=== PATIENT | female | born 1950 | race Caucasian/White ===

== ENCOUNTER 2016-07-18 13:10 | Outpatient (CLI) | payer BC ==
[~2016-07-18 13:10] MED LIST: CARDURA2 MG PO; CLEOCIN PREMIX900 MG IV; OXYCODONE HCL E20 MG PO; PRINIVIL20 MG PO
[2016-07-18] MEDS ORDERED: VIVELLE-DO1 PATCH.B1 TD (13:51)
[2016-07-18] MEDS ORDERED: RIFADIN300 MG PO (13:51)
[2016-07-18 13:58] VITALS: BP 149/79; Ht 165.1 cm
--- NOTE | 2016-07-18 14:35 | NUR ---
1410 PROCEDURE COMPLETED BY MARIANNE LEVY,RN, PT TOLERATED WELL. DENIES ANY C/O. AT BEDSIDE.
--- NOTE | 2016-07-18 15:30 | NUR ---
RIGHT UPPER ARM PICC LINE INFUSING ERTAPENEM WITHOUT DIFFICULTY. PATIENT SITTING UP IN BED, TALKING TO SPOUSE, DENIES COMPLAINTS
--- NOTE | 2016-07-18 16:15 | NUR ---
DISCHARGED HOME AMBULATORY WITH SPOUSE
== END 2016-07-18 16:15 | disposition home or self-care (01) ==
LOC: D.OPS 13:10
PROVIDERS: Student in an Organized Health Care Education/Training Program
DX: L02.01 Cutaneous abscess of face (principal)

== ENCOUNTER 2016-08-11 10:44 | Outpatient (CLI) | payer BC ==
[~2016-08-11 10:44] MED LIST changes: +RIFADIN300 MG PO; +VIVELLE-DO1 PATCH.B1 TD
[2016-08-11 14:17] VITALS: BP 135/79; Ht 165.1 cm
--- NOTE | 2016-08-11 14:20 | NUR ---
1400-RIGHT UPPER ARM PICC LINE WITH PURPLE PORT, BRISK BLOOD RETURN WITH SALINE FLUSH AT THIS TIME. IV ANTIBIOTICS INITIATED AT THIS TIME VIA PUMP OVER 30 MINUTES.
--- NOTE | 2016-08-11 15:58 | NUR ---
1430-INFUSION COMPLETE, NO SIGNS OF PROBLEMS NOTED. FLUSHED BOTH PICC LINES WITH 10CC NORMAL SALINE AND 500U HEPARIN. DISCHARGE INSTRUCTIONS GIVEN. 1450-PT. LEFT ON OWN ACCORD.
== END 2016-08-11 14:50 ==
LOC: D.OPS 10:44
DX: M27.2 Inflammatory conditions of jaws (principal); Z79.2 Long term (current) use of antibiotics

== ENCOUNTER 2016-09-21 06:57 | Emergency (ER) | payer BC ==
[2016-09-21 07:48] LABS: BASOPHILS 0.3 % (0.0-2.0); EOSINOPHILS 3.8 % (0-7); HEMATOCRIT 28.5 % (36.0-48.0); HEMOGLOBIN 8.9 g/dL (12-16); IMMATURE GRANULOCYTES 0.3 % (0-5); MCH 23.6 pg (26.0-34.0); MCHC 31.2 g/dL (31.0-37.0); MCV 75.6 fL (80.0-100.0); MEAN PLATELET VOLUME 9.1 fL (7.4-10.4); MONOCYTES 8.2 % (2-11); NEUTROPHILS 67.4 % (40-80); RBC 3.77 10x6/uL (4.00-5.40); RDW 17.4 % (11.5-14.5); WBC 7.3 10x3/uL (4.8-10.8)
[2016-09-21 07:49] LABS: PLATELET COUNT 257 10x3/uL (130-400)
[2016-09-21 08:07] LABS: ALBUMIN 2.9 g/dL (3.4-5.0); ALKALINE PHOSPHATASE 85 U/L (46-116); ALT (SGPT) 15 U/L (10-68); BILIRUBIN - TOTAL 0.19 mg/dL (0.2-1.3); CALC OSMOLALITY 282 mosm/kg (275-300); CALCIUM 9.3 mg/dL (8.5-10.1); CARBON DIOXIDE 29.1 mmol/L (21.0-32.0); CHLORIDE - SERUM 105 mmol/L (98-107); CREATININE - SERUM 0.7 mg/dL (0.6-1.3); GLUCOSE 120 mg/dL (74-106); PROTEIN - SERUM 7.1 g/dL (6.4-8.2); SODIUM 141 mmol/L (136-145); UREA NITROGEN 14 mg/dL (7-18); eGFR NON AFRICAN AMERICAN 90 mL/min (90-120)
[2016-09-21 08:13] LABS: CREATINE KINASE 65 UL (21-215)
[2016-09-21 08:14] LABS: TROPONIN-I < 0.017 ng/mL (0.000-0.060)
== END 2016-09-21 09:11 | disposition home or self-care (01) ==
LOC: D.ER 06:57
PROVIDERS: Family Medicine
DX: R42 Dizziness and giddiness (principal); I10 Essential (primary) hypertension; C41.1 Malignant neoplasm of mandible

== ENCOUNTER 2016-11-01 09:56 | Outpatient (CLI) | payer BC ==
[~2016-11-01] VITALS: Ht 165.1 cm; Wt 86.4 kg
[2016-11-01 12:44] VITALS: BP 132/77; Ht 165.1 cm; Wt 86.4 kg
--- NOTE | 2016-11-01 12:52 | NUR ---
1000-HERE FOR BLOOD TRANSFUSION. 1020-BLOOD DRAWN FROM PICC FOR TYPE AND CROSS. 1030-PATIENT LEAVES TO RUN ERRANDS AND WILL RETURN FOR TRANSFUSION. 1200-RETURNED TO ROOM. 1230-BLOOD TRANSFUSION STARTED AT 75CC/HR PER PUMP. REVIEWED SIGNS AND SYMPTOMS OF BLOOD TRANSFUSION. 1245-BLOOD INCREASED TO 150CC/HR.
--- NOTE | 2016-11-01 15:51 | NUR ---
1545 POST TRANSFUSION V.S. HAS COMPLETED. PT. VOIDS QS. PICC LINE FLUSHED WITH NS AND HEPARIN RELEASED AMB.
== END 2016-11-01 15:45 | disposition home or self-care (01) ==
LOC: D.OPS 09:56
DX: D62 Acute posthemorrhagic anemia (principal)

== ENCOUNTER → 2016-11-29 12:32 | Outpatient (CLI) | payer BC ==
[2016-11-01 12:44] VITALS: BMI 31.6
== END | disposition home or self-care (01) ==
LOC: D.LABREF 12:32
DX: A42.0 Pulmonary actinomycosis (principal); T14.8 Other injury of unspecified body region; X58.XXXA Exposure to other specified factors, initial encounter; Y93.89 Activity, other specified; Y92.89 Other specified places as the place of occurrence of the external cause

== ENCOUNTER → 2017-04-23 13:25 | Outpatient (CLI) | payer BC ==
[2016-11-01 12:44] VITALS: BMI 31.6
[2017-04-23 13:51] LABS: BASOPHILS 0.4 % (0-2); HEMATOCRIT 35.9 % (36.0-48.0); HEMOGLOBIN 11.4 g/dL (12-16); IMMATURE GRANULOCYTES 0.2 % (0-5); LYMPHOCYTES 35.6 % (15-50); MCH 30.6 pg (26.0-34.0); MCHC 31.8 g/dL (31.0-37.0); MCV 96.2 fL (80.0-100.0); MONOCYTES 8.8 % (2-11); PLATELET COUNT 235 10x3/uL (130-400); RBC 3.73 10x6/uL (4.00-5.40); RDW 15.5 % (11.5-14.5); WBC 4.6 10x3/uL (4.8-10.8)
[2017-04-23 14:10] LABS: C-REACTIVE PROTEIN 0.6 mg/dL (0.0-0.9); CREATININE - SERUM 0.7 mg/dL (0.6-1.3)
[2017-04-23 15:32] LABS: ERYTHROCYTE SEDIMENTATION RATE 31 mm/hr (0-30)
== END | disposition home or self-care (01) ==
LOC: D.LABREF 13:25
PROVIDERS: Student in an Organized Health Care Education/Training Program
DX: M27.2 Inflammatory conditions of jaws (principal)

== ENCOUNTER → 2017-04-30 13:09 | Outpatient (CLI) | payer BC ==
[2016-11-01 12:44] VITALS: BMI 31.6
[2017-04-30 13:52] LABS: BASOPHILS 0.3 % (0-2); EOSINOPHILS 1.8 % (0-7); HEMATOCRIT 34.9 % (36.0-48.0); HEMOGLOBIN 11.4 g/dL (12-16); IMMATURE GRANULOCYTES 0.1 % (0-5); MCH 31.1 pg (26.0-34.0); MCHC 32.7 g/dL (31.0-37.0); MCV 95.4 fL (80.0-100.0); MEAN PLATELET VOLUME 10.5 fL (7.4-10.4); MONOCYTES 10.3 % (2-11); NEUTROPHILS 69.5 % (40-80); PLATELET COUNT 215 10x3/uL (130-400); RBC 3.66 10x6/uL (4.00-5.40); RDW 13.8 % (11.5-14.5); WBC 6.7 10x3/uL (4.8-10.8)
[2017-04-30 13:58] LABS: C-REACTIVE PROTEIN 11.3 mg/dL (0.0-0.9); CREATININE - SERUM 0.7 mg/dL (0.6-1.3)
[2017-04-30 16:04] LABS: ERYTHROCYTE SEDIMENTATION RATE 55 mm/hr (0-30)
== END | disposition home or self-care (01) ==
LOC: D.LABREF 13:09
PROVIDERS: Student in an Organized Health Care Education/Training Program
DX: M27.2 Inflammatory conditions of jaws (principal)

== ENCOUNTER → 2017-05-07 11:15 | Outpatient (CLI) | payer BC ==
[2016-11-01 12:44] VITALS: BMI 31.6
[2017-05-07 11:38] LABS: BASOPHILS 0.3 % (0-2); EOSINOPHILS 5.1 % (0-7); HEMATOCRIT 36.6 % (36.0-48.0); HEMOGLOBIN 11.6 g/dL (12-16); IMMATURE GRANULOCYTES 0.3 % (0-5); LYMPHOCYTES 29.3 % (15-50); MCH 30.4 pg (26.0-34.0); MCHC 31.7 g/dL (31.0-37.0); MCV 96.1 fL (80.0-100.0); MEAN PLATELET VOLUME 10.1 fL (7.4-10.4); MONOCYTES 8.6 % (2-11); NEUTROPHILS 56.4 % (40-80); PLATELET COUNT 205 10x3/uL (130-400); RBC 3.81 10x6/uL (4.00-5.40); RDW 13.3 % (11.5-14.5); WBC 5.9 10x3/uL (4.8-10.8)
[2017-05-07 11:41] LABS: C-REACTIVE PROTEIN 1.6 mg/dL (0.0-0.9); CREATININE - SERUM 0.7 mg/dL (0.6-1.3)
[2017-05-07 13:15] LABS: ERYTHROCYTE SEDIMENTATION RATE 24 mm/hr (0-30)
== END | disposition home or self-care (01) ==
LOC: D.LABREF 11:15
PROVIDERS: Student in an Organized Health Care Education/Training Program
DX: M27.2 Inflammatory conditions of jaws (principal)

== ENCOUNTER → 2017-05-14 13:23 | Outpatient (CLI) | payer BC ==
[2016-11-01 12:44] VITALS: BMI 31.6
[2017-05-14 14:08] LABS: BASOPHILS 0.2 % (0-2); EOSINOPHILS 2.1 % (0-7); HEMATOCRIT 33.9 % (36.0-48.0); HEMOGLOBIN 11.2 g/dL (12-16); LYMPHOCYTES 20.2 % (15-50); MCH 30.8 pg (26.0-34.0); MCV 93.1 fL (80.0-100.0); MEAN PLATELET VOLUME 10.4 fL (7.4-10.4); MONOCYTES 7.4 % (2-11); NEUTROPHILS 70.1 % (40-80); PLATELET COUNT 240 10x3/uL (130-400); RBC 3.64 10x6/uL (4.00-5.40); RDW 12.6 % (11.5-14.5); WBC 6.3 10x3/uL (4.8-10.8)
[2017-05-14 14:30] LABS: C-REACTIVE PROTEIN 12.2 mg/dL (0.0-0.9); CREATININE - SERUM 0.7 mg/dL (0.6-1.3)
[2017-05-14 15:15] LABS: ERYTHROCYTE SEDIMENTATION RATE 75 mm/hr (0-30)
== END | disposition home or self-care (01) ==
LOC: D.LABREF 13:23
PROVIDERS: Student in an Organized Health Care Education/Training Program
DX: M86.9 Osteomyelitis, unspecified (principal); C41.1 Malignant neoplasm of mandible

== ENCOUNTER → 2017-05-21 12:42 | Outpatient (CLI) | payer BC ==
[2016-11-01 12:44] VITALS: BMI 31.6
[2017-05-21 13:42] LABS: BASOPHILS 0.1 % (0-2); HEMATOCRIT 35.2 % (36.0-48.0); HEMOGLOBIN 11.3 g/dL (12-16); IMMATURE GRANULOCYTES 0.1 % (0-5); LYMPHOCYTES 21.7 % (15-50); MCH 30.1 pg (26.0-34.0); MCHC 32.1 g/dL (31.0-37.0); MCV 93.6 fL (80.0-100.0); MEAN PLATELET VOLUME 9.7 fL (7.4-10.4); MONOCYTES 8.9 % (2-11); NEUTROPHILS 66.2 % (40-80); RBC 3.76 10x6/uL (4.00-5.40); RDW 12.8 % (11.5-14.5); WBC 6.7 10x3/uL (4.8-10.8)
[2017-05-21 13:49] LABS: C-REACTIVE PROTEIN 11.4 mg/dL (0.0-0.9); CREATININE - SERUM 0.7 mg/dL (0.6-1.3)
[2017-05-21 14:19] LABS: PLATELET COUNT 293 10x3/uL (130-400)
[2017-05-21 15:08] LABS: ERYTHROCYTE SEDIMENTATION RATE 50 mm/hr (0-30)
== END | disposition home or self-care (01) ==
LOC: D.LABREF 12:42
PROVIDERS: Student in an Organized Health Care Education/Training Program
DX: M85.9 Disorder of bone density and structure, unspecified (principal); C80.1 Malignant (primary) neoplasm, unspecified

== ENCOUNTER → 2018-08-23 14:10 | Outpatient (CLI) | payer MEDICARE ==
[2016-11-01 12:44] VITALS: BMI 31.6
[~2018-08-23 14:10] MED LIST changes: +BACTRIM 400-801 TAB; +BUMETANIDE0.5 MG PO; +K-TAB10 MEQ PO; +MINOCIN50 MG PO; +NEURONTIN 300300 MG PO; +SYNTHROID50 MCG PO
== END | disposition home or self-care (01) ==
LOC: D.LABREF 14:10
DX: L08.9 Local infection of the skin and subcutaneous tissue, unspecified (principal)

== ENCOUNTER 2018-08-27 23:11 | Emergency (ER) | payer MEDICARE ==
[~2018-08-27] VITALS: Ht 165.1 cm; Wt 71.8 kg
[~2018-08-27 23:11] MED LIST changes: -BACTRIM 400-801 TAB; -BUMETANIDE0.5 MG PO; -K-TAB10 MEQ PO; -MINOCIN50 MG PO; -NEURONTIN 300300 MG PO; -SYNTHROID50 MCG PO
[2018-08-27 23:16] VITALS: Ht 165.1 cm; Wt 71.8 kg
[2018-08-27] MEDS ORDERED: K-TAB10 MEQ PO (23:17)
[2018-08-27] MEDS ORDERED: SYNTHROID50 MCG PO (23:18)
[2018-08-27] MEDS ORDERED: NEURONTIN 300300 MG PO (23:18)
[2018-08-27] MEDS ORDERED: BUMETANIDE0.5 MG PO (23:18)
[2018-08-27] MEDS ORDERED: MINOCIN50 MG PO (23:19)
[2018-08-27] MEDS ORDERED: BACTRIM 400-801 TAB (23:19)
[2018-08-28 00:07] LABS: ALBUMIN 3.1 g/dL (3.4-5.0); ANION GAP 15.6 mmol/L (8-16); BILIRUBIN - TOTAL 0.41 mg/dL (0.2-1.3); CARBON DIOXIDE 27.2 mmol/L (21.0-32.0); CREATININE - SERUM 1.5 mg/dL (0.6-1.3); POTASSIUM - SERUM 3.8 mmol/L (3.5-5.1); PROTEIN - SERUM 7.9 g/dL (6.4-8.2)
[2018-08-28 00:09] LABS: BASOPHILS 0.4 % (0-2); EOSINOPHILS 1.8 % (0-7); HEMATOCRIT 34.2 % (36.0-48.0); HEMOGLOBIN 11.1 g/dL (12-16); IMMATURE GRANULOCYTES 0.5 % (0-5); LYMPHOCYTES 8.3 % (15-50); MCH 28.7 pg (26.0-34.0); MCHC 32.5 g/dL (31.0-37.0); MCV 88.4 fL (80.0-100.0); MEAN PLATELET VOLUME 9.5 fL (7.4-10.4); MONOCYTES 4.5 % (2-11); NEUTROPHILS 84.5 % (40-80); RBC 3.87 10x6/uL (4.00-5.40); WBC 8.4 10x3/uL (4.8-10.8)
[2018-08-28 00:10] LABS: PLATELET COUNT 167 10x3/uL (130-400)
[2018-08-28 01:31] LABS: APPEARANCE CLEAR (CLEAR); BILIRUBIN NEGATIVE (NEGATIVE); COLOR YELLOW (YELLOW); GLUCOSE NEGATIVE (NEGATIVE); KETONE NEGATIVE (NEGATIVE); NITRITE NEGATIVE (NEGATIVE); PROTEIN 3+ mg/dL (NEGATIVE); SPECIFIC GRAVITY 1.005 (1.005-1.020); UROBILINOGEN NORMAL (NORMAL)
[2018-08-28 01:32] LABS: BACTERIA FEW /hpf (NONE SEEN); EPITHELIAL CELLS 0-5 /hpf (0-5); WHITE CELLS - URINE 0-5 /hpf (0-5)
[2018-08-28 02:10] VITALS: BP 150/73
== END 2018-08-28 02:11 | disposition home or self-care (01) ==
LOC: D.ER 23:11
PROVIDERS: Family Medicine
DX: L03.211 Cellulitis of face (principal); R31.9 Hematuria, unspecified

== ENCOUNTER 2018-08-28 10:20 | Outpatient (CLI) | payer MEDICARE ==
[~2018-08-28] VITALS: Ht 165.1 cm; Wt 71.8 kg
[~2018-08-28 10:20] MED LIST changes: +BACTRIM 400-801 TAB; +BUMETANIDE0.5 MG PO; +K-TAB10 MEQ PO; +MINOCIN50 MG PO; +NEURONTIN 300300 MG PO; +SYNTHROID50 MCG PO
[2018-08-28 12:51] VITALS: BP 177/87; Ht 165.1 cm; Wt 71.8 kg
--- NOTE | 2018-08-28 12:59 | NUR ---
RT PORT ACCESSED WITH 20G ONE INCH VALDOVINOS X ONE STICK. TOLERATED WELL. EXCELLENT BLOOD RETURN NOTED. ANTIBIOTICS STARTED ORDERED.
--- NOTE | 2018-08-28 13:50 | NUR ---
1334 ABX HAS INFUSED. PT DENIES ITCHING OR ANY WHELPS. NO C/O CP OR SOB. PT STATES SHE FEELS FINE AND IS READY TO GO HOME TO SLEEP. STATES SHE WAS IN ED LAST NIGHT AND IS TIRED FROM BEING AWAY FROM HOME. PT HAS BEEN CHEERFUL AND TALKATIVE AND HAS BEEN EATING SOME LUNCH IN ROOM.
== END 2018-08-28 13:50 | disposition home or self-care (01) ==
LOC: D.OPS 10:20
DX: M86.9 Osteomyelitis, unspecified (principal)

== ENCOUNTER → 2018-09-10 11:48 | Outpatient (CLI) | payer MEDICARE ==
[2018-08-28 12:51] VITALS: BMI 26.3
== END | disposition home or self-care (01) ==
LOC: D.MRI 11:48 → D.CT 16:00
PROVIDERS: ATTEND Family Medicine
DX: R41.0 Disorientation, unspecified (principal); Z85.89 Personal history of malignant neoplasm of other organs and systems